=== PATIENT | female | born 2000 | race Caucasian/White ===

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

== ENCOUNTER 2019-03-21 22:10 | Emergency (ER) | payer SELFPAY ==
[~2019-03-21] VITALS: Ht 170.2 cm; Wt 64.1 kg
[2019-03-21 22:13] VITALS: Ht 170.2 cm; Wt 64.1 kg
[2019-03-21 22:38] LABS: APPEARANCE CLEAR (CLEAR); BILIRUBIN NEGATIVE (NEGATIVE); COLOR YELLOW (YELLOW); GLUCOSE NEGATIVE (NEGATIVE); KETONE NEGATIVE (NEGATIVE); NITRITE NEGATIVE (NEGATIVE); PROTEIN NEGATIVE (NEGATIVE); UROBILINOGEN NORMAL (NORMAL)
[2019-03-21 22:38] LABS: BASOPHILS 0.6 % (0-2); EOSINOPHILS 4.3 % (0-7); HEMATOCRIT 41.3 % (36.0-48.0); HEMOGLOBIN 14.3 g/dL (12-16); IMMATURE GRANULOCYTES 0.1 % (0-5); LYMPHOCYTES 45.5 % (15-50); MCH 30.2 pg (26.0-34.0); MCHC 34.6 g/dL (31.0-37.0); MCV 87.3 fL (80.0-100.0); MEAN PLATELET VOLUME 9.7 fL (7.4-10.4); MONOCYTES 8.1 % (2-11); NEUTROPHILS 41.4 % (40-80); PLATELET COUNT 299 10x3/uL (130-400); RBC 4.73 10x6/uL (4.00-5.40); RDW 12.7 % (11.5-14.5); WBC 7.2 10x3/uL (4.8-10.8)
[2019-03-21 22:54] LABS: ALBUMIN 4.6 g/dL (3.4-5.0); ALKALINE PHOSPHATASE 75 U/L (46-116); ALT (SGPT) 30 U/L (10-68); BILIRUBIN - TOTAL 0.45 mg/dL (0.2-1.3); CALC OSMOLALITY 279 mosm/kg (275-300); CALCIUM 9.4 mg/dL (8.5-10.1); CARBON DIOXIDE 31.5 mmol/L (21.0-32.0); CHLORIDE - SERUM 103 mmol/L (98-107); CREATININE - SERUM 0.8 mg/dL (0.6-1.3); GLUCOSE 84 mg/dL (74-106); POTASSIUM - SERUM 3.7 mmol/L (3.5-5.1); SODIUM 141 mmol/L (136-145); UREA NITROGEN 12 mg/dL (7-18); eGFR NON AFRICAN AMERICAN > 90 mL/min (90-120)
[2019-03-21 22:58] LABS: HCG SERUM NEGATIVE (NEGATIVE)
[2019-03-22] MEDS ORDERED: IBUPROFEN800 MG PO (00:28)
[2019-03-22] MEDS ORDERED: CYCLOBENZAPRINE10 MG PO (00:28)
[2019-03-22] MEDS ORDERED: ACETAMINOPHEN500 M1 PO (00:28)
[2019-03-22 00:46] VITALS: BP 108/62
== END 2019-03-22 00:42 | disposition home or self-care (01) ==
LOC: D.ER 22:10
PROVIDERS: Family Medicine
DX: N93.8 Other specified abnormal uterine and vaginal bleeding (principal); R10.9 Unspecified abdominal pain

== ENCOUNTER 2019-07-06 21:30 | Outpatient (CLI) | payer MEDICAID ==
[~2019-07-06] VITALS: Ht 170.2 cm; Wt 67.7 kg
[~2019-07-06 21:30] MED LIST: ACETAMINOPHEN500 M1 PO; CYCLOBENZAPRINE10 MG PO; IBUPROFEN800 MG PO
[2019-07-06 21:37] VITALS: Ht 170.2 cm; Wt 67.7 kg
[2019-07-06 21:54] LABS: HEMATOCRIT 40.5 % (36.0-48.0); HEMOGLOBIN 14.1 g/dL (12-16); MCH 29.1 pg (26.0-34.0); MCHC 34.8 g/dL (31.0-37.0); MCV 83.7 fL (80.0-100.0); RBC 4.84 10x6/uL (4.00-5.40); WBC 5.8 10x3/uL (4.8-10.8)
--- NOTE | 2019-07-06 21:54 | NUR ---
PT UP TO RESTROOM WITH MOTHERS HELP. PT PROVIDED A HAT TO CATCH ANY SPECIMAN THAT PASSES. PT MOTHER TO NURSES STATION STATING "SHE PASSED THE BABY IN THE BATHROOM" SPECIMAN COLLECTED. VIRIDIANA MCCLURE NOTIFIED AND SPECIMAN COLLECTED IN CUP FOR [employer].
[2019-07-06 21:55] LABS: PLATELET COUNT 172 10x3/uL (130-400)
[2019-07-06 22:03] LABS: HCG SERUM POSITIVE (NEGATIVE)
[2019-07-06 22:10] LABS: ALBUMIN 3.9 g/dL (3.4-5.0); ALKALINE PHOSPHATASE 114 U/L (46-116); ALT (SGPT) 194 U/L (10-68); BILIRUBIN - TOTAL 0.54 mg/dL (0.2-1.3); CALC OSMOLALITY 277 mosm/kg (275-300); CALCIUM 9.2 mg/dL (8.5-10.1); CARBON DIOXIDE 26.9 mmol/L (21.0-32.0); CHLORIDE - SERUM 104 mmol/L (98-107); CREATININE - SERUM 0.8 mg/dL (0.6-1.3); GLUCOSE 92 mg/dL (74-106); POTASSIUM - SERUM 3.5 mmol/L (3.5-5.1); PROTEIN - SERUM 7.3 g/dL (6.4-8.2); SODIUM 140 mmol/L (136-145); UREA NITROGEN 9 mg/dL (7-18); eGFR NON AFRICAN AMERICAN > 90 mL/min (90-120)
[2019-07-06 22:16] LABS: BASOPHILS 3 % (0-2); EOSINOPHILS 2 % (0-7); LYMPHOCYTES 36 % (15-50); MONOCYTES 6 % (2-11); NEUTROPHILS 47 % (40-80); PLATELET ESTIMATE NORMAL
[2019-07-06 22:31] LABS: HCG - QUANTITATIVE (MATERNAL) 7407 mIU/mL
--- NOTE | 2019-07-06 23:00 | NUR ---
SPECIMAN TO BE SENT TO LABOR AND DELIVERY WITH PT PER OB REQUEST.
[2019-07-06 23:30] VITALS: BP 112/66
== END 2019-07-07 02:35 | disposition home or self-care (01) ==
LOC: OBSVTIME → D.LDO 21:30 → D.ER 21:30 → OBSVTIME 22:39 → D.LD 22:39 → D.ER 23:28 → D.LD 07-07 02:35 → D.LDO 07-07 02:35 → D.LD 07-07 02:35
PROVIDERS: Family Medicine; ATTEND Obstetrics & Gynecology
DX: O03.9 Complete or unspecified spontaneous abortion without complication (principal)

== ENCOUNTER → 2019-07-11 11:25 | Outpatient (CLI) | payer MEDICAID ==
[2019-07-06 21:37] VITALS: BMI 23.4
[~2019-07-11 11:25] MED LIST changes: +FLAGYL500 MG PO; +TORADOL10 MG PO
[2019-07-11 12:10] LABS: BASOPHILS 2.8 % (0-2); EOSINOPHILS 2.4 % (0-7); HEMATOCRIT 40.6 % (36.0-48.0); HEMOGLOBIN 14.2 g/dL (12-16); IMMATURE GRANULOCYTES 0.4 % (0-5); LYMPHOCYTES 41.9 % (15-50); MCH 29.5 pg (26.0-34.0); MCV 84.2 fL (80.0-100.0); MEAN PLATELET VOLUME 10.5 fL (7.4-10.4); MONOCYTES 11.9 % (2-11); NEUTROPHILS 40.6 % (40-80); PLATELET COUNT 145 10x3/uL (130-400); RBC 4.82 10x6/uL (4.00-5.40); RDW 13.2 % (11.5-14.5)
== END | disposition home or self-care (01) ==
LOC: D.LAB 11:25
PROVIDERS: ATTEND Student in an Organized Health Care Education/Training Program
DX: O03.87 Sepsis following complete or unspecified spontaneous abortion (principal); A41.9 Sepsis, unspecified organism

== ENCOUNTER 2019-07-11 12:54 | Emergency (ER) | payer MEDICAID ==
[~2019-07-11] VITALS: Ht 170.2 cm; Wt 66.8 kg
[~2019-07-11 12:54] MED LIST changes: -FLAGYL500 MG PO; -TORADOL10 MG PO
[2019-07-11 13:49] VITALS: Ht 170.2 cm; Wt 66.8 kg
[2019-07-11 14:18] LABS: ALBUMIN 3.8 g/dL (3.4-5.0); ALKALINE PHOSPHATASE 196 U/L (46-116); ALT (SGPT) 357 U/L (10-68); BILIRUBIN - TOTAL 0.59 mg/dL (0.2-1.3); CALC OSMOLALITY 276 mosm/kg (275-300); CARBON DIOXIDE 26.5 mmol/L (21.0-32.0); CHLORIDE - SERUM 102 mmol/L (98-107); CREATININE - SERUM 0.7 mg/dL (0.6-1.3); GLUCOSE 87 mg/dL (74-106); POTASSIUM - SERUM 4.2 mmol/L (3.5-5.1); PROTEIN - SERUM 7.3 g/dL (6.4-8.2); SODIUM 140 mmol/L (136-145); UREA NITROGEN 10 mg/dL (7-18); eGFR NON AFRICAN AMERICAN > 90 mL/min (90-120)
[2019-07-11 14:47] LABS: APPEARANCE CLEAR (CLEAR); BILIRUBIN NEGATIVE (NEGATIVE); COLOR YELLOW (YELLOW); GLUCOSE NEGATIVE (NEGATIVE); KETONE NEGATIVE (NEGATIVE); NITRITE NEGATIVE (NEGATIVE); PROTEIN NEGATIVE (NEGATIVE); SPECIFIC GRAVITY 1.005 (1.005-1.020); UROBILINOGEN NORMAL (NORMAL)
[2019-07-11] MEDS ORDERED: FLAGYL500 MG PO (16:01)
[2019-07-11] MEDS ORDERED: TORADOL10 MG PO (16:01)
[2019-07-11 16:25] VITALS: BP 103/68
== END 2019-07-11 16:20 | disposition home or self-care (01) ==
LOC: D.ER 12:54
PROVIDERS: Family Medicine
DX: O03.9 Complete or unspecified spontaneous abortion without complication (principal)